=== PATIENT | female | born 1990 | race Caucasian/White ===

== ENCOUNTER → 2021-09-19 | Day surgery (SDC) | payer OTHER ==
[~2021-09-19] VITALS: Ht 170.2 cm; Wt 104.3 kg
[~2021-09-19] MED LIST: KETOROLAC TROME10 MG PO; ONDANSETRON ODT8 MG PO
[2021-09-19 08:32] LABS: HCT 36.3 % (37.0-47.0); MCHC 33.1 g/dL (32.0-36.0); MCV 87.7 fL (78.0-100.0); MPV 10.1 fL (6.0-9.5); RBC 4.14 M/uL (4.20-5.40); RDW 12.9 % (11.5-14.0); WBC 6.4 K/uL (4.0-10.5)
== END | disposition home or self-care (01) ==
LOC: FAS 07:46
PROVIDERS: Specialist
DX: N92.1 Excessive and frequent menstruation with irregular cycle (principal); N94.6 Dysmenorrhea, unspecified; Z98.51 Tubal ligation status
CPT/HCPCS: 36415; 84702; J0690; J1100; J1170; J1885; J2250; J2405; J2704; J3010; J7120